=== PATIENT | male | born 1970 | race Caucasian/White ===

== ENCOUNTER 2016-08-05 12:19 | Emergency (ER) | payer OTHER ==
[~2016-08-05] VITALS: Ht 175.3 cm; Wt 82.7 kg
[~2016-08-05 12:19] MED LIST: ADVIL200 MG PO; Aspirin E.C. PO; BENADRYL50 MG PO; KEFLEX500 MG PO; NORCO 5/3251 TABLET PO; OMEPRAZOLE20 M2 PO; PREDNISONE20 MG PO; PREDNISONE50 MG PO; RANITIDINE HCL150 MG PO; VENTOLIN HFA18 GM IH; ZANTAC150 MG PO
[2016-08-05 13:26] VITALS: BP 115/86
== END 2016-08-05 13:28 | disposition home or self-care (01) ==
LOC: EME 12:19
PROC: 0HQGXZZ Repair Left Hand Skin, External Approach (ICD-10-PCS; principal; 2016-08-05)
DX: S61.412A Laceration without foreign body of left hand, initial encounter (principal); W26.0XXA Contact with knife, initial encounter
CPT/HCPCS: 99281; 99283

== ENCOUNTER 2017-03-31 13:55 | Emergency (ER) | payer OTHER ==
[~2017-03-31] VITALS: Ht 167.6 cm; Wt 76.5 kg
[2017-03-31 15:02] LABS: ADD MIUA? NO; BILIRUBIN NEGATIVE; BLOOD NEGATIVE; COLOR YELLOW ((YELLOW)); GLUCOSE (STRIP) NEGATIVE; KETONES 20; LEUKOCYTES NEGATIVE; NITRITE NEGATIVE; PROTEIN (STRIP) NEGATIVE; SPECIFIC GRAVITY 1.025 (1.000-1.030)
[2017-03-31 15:03] LABS: UCUL ADDED? NO
[2017-03-31] MEDS ORDERED: NAPROXEN500 MG PO (16:34)
[2017-03-31 16:52] VITALS: BP 102/70
== END 2017-03-31 16:54 | disposition home or self-care (01) ==
LOC: EME 13:55
PROVIDERS: Physician Assistant Medical
DX: M25.551 Pain in right hip (principal); M25.552 Pain in left hip; N50.3 Cyst of epididymis; M16.11 Unilateral primary osteoarthritis, right hip; F17.200 Nicotine dependence, unspecified, uncomplicated
CPT/HCPCS: 73521; 76870; 81003; 99281; 99283

== ENCOUNTER 2017-09-05 20:45 | Emergency (ER) | payer OTHER ==
[~2017-09-05] VITALS: Ht 170.2 cm; Wt 75.1 kg
[~2017-09-05 20:45] MED LIST changes: +NAPROXEN500 MG PO
[2017-09-05 21:20] LABS: HEMATOCRIT 41.8 % (38.0-50.0); HEMOGLOBIN 14.6 G/DL (12.5-16.6); MCH 31.7 PG (29.0-34.0); MCHC 34.9 G/DL (30.0-36.0); MCV 90.9 FL (86-99); PLATELET COUNT 289 K/uL (156-360); RBC DIS.WIDTH-CV 12.2 % (11.8-14.6); RBC DIS.WIDTH-SD 40.5 % (39-53); WHITE BLOOD COUNT 9.3 K/uL (4.1-10.2)
[2017-09-05 21:29] LABS: CHLORIDE 108 mEq/L (99-109); POTASSIUM 4.2 mEq/L (3.7-5.4); SODIUM 140 mEq/L (136-147)
[2017-09-05 21:31] LABS: GLUCOSE 103 mg/dL (70-99)
[2017-09-05 21:35] LABS: CREATININE 0.8 mg/dL (0.6-1.3); GFR ESTIMATE (CALCULATED) > 59 mL/min/ (58.99-99999)
[2017-09-05 21:36] LABS: UREA NITROGEN (BUN) 18 mg/dL (9-23)
[2017-09-05 21:41] LABS: TROP-I INTERPRETATION NEGATIVE; TROPONIN-I < 0.01 ng/mL (0.0-0.30)
[2017-09-05] MEDS ORDERED: ZANTAC150 MG PO (22:42)
[2017-09-05 23:17] VITALS: BP 101/67
== END 2017-09-05 23:17 | disposition home or self-care (01) ==
LOC: EME 20:45
DX: M54.9 Dorsalgia, unspecified (principal); K44.9 Diaphragmatic hernia without obstruction or gangrene; R07.89 Other chest pain; F17.200 Nicotine dependence, unspecified, uncomplicated; Z98.1 Arthrodesis status; Z88.8 Allergy status to other drugs, medicaments and biological substances
CPT/HCPCS: 71046; 80048; 84484; 85027; 93005; 99281; 99284; J1885